=== PATIENT | male | born 1995 | race Caucasian/White ===

== ENCOUNTER 2021-09-03 15:28 | Emergency (ER) | payer OTHER, SELFPAY ==
[~2021-09-03] VITALS: Ht 188 cm; Wt 72.6 kg
[2021-09-03 15:30] VITALS: BP_SYST 113
--- NOTE | 2021-09-03 15:30 | NUR ---
TRIAGED AND BROUGHT BACK TO ROOM #8, REPORT GIVEN TO PATRICK
--- NOTE | 2021-09-03 15:45 | NUR ---
DR LONG AT BEDSIDE FOR EVALUATION
--- NOTE | 2021-09-03 15:50 | NUR ---
PT STATES THAT AFTER HAVING INTERCOURSE 1 1/2 MONTHS AGO, PT STATES TESTICULAR PAIN, LOWER ABDOMINAL PAIN AND LOWER BACK PAIN. STATES THAT HE THINKS HIS "PENIS IS BROKEN". INCREASING PAIN FOR LAST 1 WEEK.
--- NOTE | 2021-09-03 17:04 | NUR ---
Patient given written and verbal discharge instructions and verbalizes understanding. ER MD discussed with patient the results and treatment provided. Patient in stable condition. ID arm band removed Rx of NONE given. Patient educated on pain management and to follow up with PMD. Pain Scale 0/10. Opportunity for questions provided and answered. Medication side effect fact sheet provided.
== END 2021-09-03 17:04 | disposition home or self-care (01) ==
LOC: SED 15:28
DX: N44.00 Torsion of testis, unspecified (principal); Z88.0 Allergy status to penicillin
CPT/HCPCS: 99281

== ENCOUNTER 2021-09-08 23:20 | Emergency (ER) | payer MEDICAID, OTHER, SELFPAY ==
[~2021-09-08] VITALS: Ht 188 cm; Wt 68.0 kg
[2021-09-08 23:40] VITALS: BP_SYST 127
--- NOTE | 2021-09-08 23:40 | NUR ---
Patient triaged and placed in waiting room. VSS and patient appears in no acute distress at this time. Accompanied by g-friend, awaiting available bed, and MD notified of need for MSE.
--- NOTE | 2021-09-08 23:50 | NUR ---
Pt states dont want to wait the doctor.Dr Tamez made aware.LWBS
== END 2021-09-08 23:50 | disposition left against medical advice (07) ==
LOC: SED 23:20
DX: M54.2 Cervicalgia (principal); R68.84 Jaw pain; Z53.21 Procedure and treatment not carried out due to patient leaving prior to being seen by health care provider

== ENCOUNTER 2021-09-23 17:29 | Emergency (ER) | payer OTHER, SELFPAY ==
[~2021-09-23] VITALS: Ht 188 cm; Wt 68.0 kg
[2021-09-23 17:46] VITALS: BP_SYST 136
--- NOTE | 2021-09-23 17:46 | NUR ---
Pt. bib S.O. with c/o 10 abd pain to right side with nausea, no vomitting, and unable to void, came on last night acutely and has not subsided
--- NOTE | 2021-09-23 17:50 | NUR ---
Patient to [facility] guerrero for evaluation.
--- NOTE | 2021-09-23 17:51 | NUR ---
ER in examining patient.
[2021-09-23] MEDS ORDERED: NACL 0.9% 1,000 ML IV ONE (18:00)
[2021-09-23] MEDS ORDERED: KETOROLAC TROMETHAMINE 30 MG VIAL IVP ONE (18:00)
[2021-09-23 18:54] LABS: CALCIUM 9.2 mg/dL (8.4-11.0); CREATININE 1.08 mg/dL (0.55-1.30); POTASSIUM 3.4 mmol/L (3.5-5.1)
[2021-09-23 18:59] LABS: ALBUMIN 4.1 g/dL (3.4-4.8); TOTAL BILIRUBIN 0.5 mg/dL (0.0-1.0)
[2021-09-23 19:08] LABS: BASOPHILS % (AUTO) 0.3 % (0.0-2.0); EOSINOPHILS % (AUTO) 0.5 % (0.0-4.0); HEMATOCRIT 49.1 % (36-54); HEMOGLOBIN 16.6 g/dL (14.0-18.0); LYMPHOCYTES # (AUTO) 1.2 K/uL (1.0-5.5); LYMPHOCYTES % (AUTO) 18.1 % (20.5-51.5); MEAN CORPUSCULAR HEMOGLOBIN 29 pg (27-31); MEAN CORPUSCULAR HGB CONC 34 % (32-36); MEAN CORPUSCULAR VOLUME 85 fL (79.0-98.0); MONOCYTES # (AUTO) 0.5 K/uL (0.0-1.0); MONOCYTES % (AUTO) 7.2 % (1.7-9.3); NEUTROPHILS % (AUTO) 73.9 % (40.0-70.0); PLATELET COUNT (AUTO) 205 K/uL (130-430); RED BLOOD CELL COUNT(AUTO) 5.79 MIL/uL (4.2-6.2); RED CELL DISTRIBUTION WIDTH 12.5 % (9.0-15.0); WHITE BLOOD COUNT (AUTO) 6.8 K/uL (4.8-10.8)
[2021-09-23] MEDS ORDERED: MOM PO (19:51)
--- NOTE | 2021-09-23 20:22 | NUR ---
Patient given written and verbal discharge instructions and verbalizes understanding. ER MD discussed with patient the results and treatment provided. Patient in stable condition. ID arm band removed. IV catheter removed intact and dressing applied, no active bleeding. Rx of milk of magnesia given. Patient educated on pain management and to follow up with PMD. Pain Scale 0/10 Opportunity for questions provided and answered. Medication side effect fact sheet provided.
[2021-09-23 20:23] VITALS: BP_SYST 136
== END 2021-09-23 20:23 | disposition home or self-care (01) ==
LOC: SED 17:29
DX: K59.00 Constipation, unspecified (principal); Z88.0 Allergy status to penicillin
CPT/HCPCS: 36415; 74176; 76376; 80053; 85025; 96361; 96374; 99284; J1885

== ENCOUNTER 2021-10-16 02:16 | Emergency (ER) | payer OTHER, SELFPAY ==
[~2021-10-16] VITALS: Ht 188 cm; Wt 68.0 kg
[~2021-10-16 02:16] MED LIST: MOM PO
[2021-10-16 02:27] VITALS: BP_SYST 138
--- NOTE | 2021-10-16 02:27 | NUR ---
Patient to ER bed 06 to gown for evaluation. Side rails up. Report given to BRADY Girard
[2021-10-16] MEDS: KETOROLAC TROMETHAMINE 60 MG/2 ML VIAL IM ONE ×2 (02:51→03:01)
[2021-10-16] MEDS ORDERED: ONDANSETRON 4 MG ODT TAB PO ONE (03:00)
--- NOTE | 2021-10-16 03:04 | NUR ---
PATIENT LYING IN BED, NO C/O PAIN OR S/S OF DISTRESS. PATIENT CHEST RISE AND FALL SYMMETRICAL. PATIENT RESTING COMFORTABLY, BED IN LOW AND LOCKED POSITION, 3 BED RAILS UP.
--- NOTE | 2021-10-16 03:04 | NUR ---
cv tech at bedside performing ultrasound.
--- NOTE | 2021-10-16 03:04 | NUR ---
ER doctor, Dr. Benjamin at bedside examining patient.
--- NOTE | 2021-10-16 03:16 | NUR ---
Patient's girlfriend is at bedside to help calm patient while testing tech is performing ultrasound.
[2021-10-16] MEDS ORDERED: MORPHINE 4 MG INJ. 4 MG/ML VIAL IM ONE (03:45)
[2021-10-16] MEDS ORDERED: LORazepam 1 MG TABLET PO ONE (03:45)
--- NOTE | 2021-10-16 04:15 | NUR ---
PATIENT A/OX4. PATIENT IS LYING IN BED, RESTING CALMLY WITH HIS HIRLFRIEND AT BEDSIDE, NO C/O PAIN OR S/S OF DISTRESS. PATIENT CHEST RISE AND FALL SYMMETRICAL. PATIENT RESTING COMFORTABLY, BED IN LOW AND LOCKED POSITION, 3 BED RAILS UP.
--- NOTE | 2021-10-16 04:39 | NUR ---
PATIENT LYING IN BED, NO C/O PAIN OR S/S OF DISTRESS. PATIENT CHEST RISE AND FALL SYMMETRICAL. PATIENT RESTING COMFORTABLY, BED IN LOW AND LOCKED POSITION, 3 BED RAILS UP. Addendum: 10/16/21 at 0440 by [email or web address] PATIENT A/OX4, LYING IN BED, NO C/O PAIN OR S/S OF DISTRESS. PATIENT CHEST RISE AND FALL SYMMETRICAL. PATIENT RESTING COMFORTABLY, BED IN LOW AND LOCKED POSITION, 3 BED RAILS UP.
[2021-10-16 04:46] VITALS: BP_SYST 127
--- NOTE | 2021-10-16 04:48 | NUR ---
PATIENT VERBALIZED UNDERSTANDING OF DISCHARGE EDUCATION, NO FURTHER QUESTIONS. PATIENT LEFT WITH ALL BELONGINGS, AND ALL DISCHARGE PEPERWORK. PATIENT WALKS WITH STRONG GAIT.
== END 2021-10-16 04:46 | disposition home or self-care (01) ==
LOC: SED 02:16
DX: N50.811 Right testicular pain (principal); N50.812 Left testicular pain; Z88.0 Allergy status to penicillin; Z79.899 Other long term (current) drug therapy
CPT/HCPCS: 76870; 96372; 99284; J1885; Q0162